=== PATIENT | female | born 1990 | race Caucasian/White ===

== ENCOUNTER 2024-01-06 17:49 | Emergency (ER) | payer BC, SELFPAY ==
[2024-01-06] VITALS (7 sets, daily range): BP systolic 84–119; BP diastolic 52–81
--- NOTE | 2024-01-06 18:54 | ED.GENMED ---
History of Present Illness
General
Chief Complaint: Chest Pain
Source: patient
Exam Limitations: none
Time Seen by Provider: 01/06/24 18:34
Nursing documentation reviewed up to this point in time: agreed with
Travel History
Have you had any contact with someone who has COVID-19?: No
Do you have any symptoms of coronavirus? Fever > 100 degrees, chills, cough, shortness of breath, sore throat, loss of taste or smell, muscle aches, or headache?: No
History of Present Illness
History of Present Illness:
33-year-old female presents emergency room complaining of chest pain on and off began 2 weeks ago in the middle of the night. Feels like a pressure and burning at times. She has taken famotidine, which does not seem to help. The pain does
alleviate on its own.
Past History
Past History
ED Past Medical History: None
ED Past Surgical History: Tonsilectomy
Social History
Tobacco: Non-smoker
Personal:
Review of Systems
Review of Systems
Allergies reviewed?: Yes
All Other Systems: Not applicable
Constitutional: Reports no symptoms
EENT: Reports no symptoms
Respiratory: Reports no symptoms
Cardiac: Reports chest pain
ABD/GI: Reports no symptoms
: Reports no symptoms
Musculoskeletal: Reports no symptoms
Skin: Reports no symptoms
Neurological: Reports no symptoms
Endocrine: Reports no symptoms
Hematologic/Lymphatic: Reports no symptoms
Psychiatric: Reports no symptoms
Phy Exam
Physical Exam
Physical Exam:
Physical Exam
General: no apparent distress, not acutely ill
Neck: supple. no meningeal signs. normal posterior pharynx
Heart: s1/s2 regular rate and rhythm, no murmur. equal radial
pulses.
HEENT: Pupils equal round reactive to light, EOMI
Lungs: no acute respiratory distress. clear bilaterally, chest wall tender to palpation reproducing pain
Abdomen: normal bowel sounds. not tender. no CVAT
Neuro: alert and oriented. no focal neurological deficits cranial nerves II through XII intact
Skin: no rash
Psychiatric: well kept. interactive and cooperative
Extremities: no edema. no calf tenderness. negative homans. good distal pulses
Scores
Heart Score for Chest Pain Patients
STEMI patient?: Not applicable
Course
Orders/Labs/Results
Orders:
Orders
01/06/24 17:55
Electrocardiogram (*1) Urgent
Reason for Study: Chest Pain
EKG- Treatment ONCE
01/06/24 18:51
IV Insert/Care/Rem.- Treatment PRN
Ketorolac [Toradol] 15 mg IM NOW STA
01/06/24 18:52
CR Chest - 2 Views Urgent
Comment:
Reason For Exam: midsternal chest pain, 2 weeks
01/06/24 18:54
Test Result ONCE
01/06/24 19:06
Complete Blood Count/With Diff Urgent
Comprehensive Metabolic Panel Urgent
HCG, Serum Qualitative Screen Urgent
Troponin I Urgent
01/06/24 19:10
Ketorolac [Toradol] 15 mg IV NOW STA
01/06/24 19:19
D-Dimer Urgent
Abnormal Lab Results
01/06/24
19:06
MCH 31.6 H pg
(27.0-31.0)
MPV 11.6 H fL
(7.4-10.4)
Glucose 142 H mg/dl
(70-99)
01/06/24 19:06
01/06/24 19:06
Vital Signs
Initial and Last Documented VS:
Initial Vital Signs
Temp Pulse Resp BP Pulse Ox
98.5 F 78 20 119/73 97
01/06/24 17:51 01/06/24 17:51 01/06/24 17:51 01/06/24 17:51 01/06/24 17:51
Last Documented Vital Signs
Temp Pulse Resp BP Pulse Ox
98.5 F 70 15 84/52 100
01/06/24 17:51 01/06/24 19:15 01/06/24 19:15 01/06/24 19:15 01/06/24 19:15
MDM/Problems Addressed
Differential Diagnosis Includes:
PE, chest wall pain
MDM/Problems Addressed:
33 yo female with chest wall pain. Do not suspect acs, pe or pneumothorax. Vasovagal episode while in ED. No signs of dysrhythmia, but had mild bradycardia. Stable for d/c.
*Radiology
Radiology exam reviewed: radiology read reviewed (cxr nad)
*Pulse Oximetry
Patient hypoxic: no
*EKG
Interpreted by ED Provider?: Yes
EKG Intrepretation Date: 01/06/24
EKG Intrepretation Time: 17:58
Interpretation: normal
Comparison EKG: no changes
Heart Rate: 78
Rate: normal
Rhythm: sinus
[place]: normal axis
Interval: normal interval
QRS Pattern: normal QRS
Ischemia: no ischemia
*Brass Polisher Interpretation
Rate: normal
Interpretation: normal
Heart Rate: 70
Rhythm: sinus
*Critical Care Note
Total Time (30-74mins, 75-104mins- exclusive of procedures): Not Applicable
Patient Management
Social determinants of health affecting care: Living situation
Escalation/DeEscalation of care consider admission/obs:
admit not indicated
ED Attending Note
-
Portions of this chart may have been created with voice recognition software.� Occasional wrong word or��sound alike� substitutions may have occurred due to the inherent limitations of voice recognition software.
Discharge Plan
Departure
Patient Disposition: Home (Routine Discharge)
Date of Disposition: 01/06/24
Time of Disposition: 20:09
Patient with high blood pressure during this ER visit?: No
Condition: Good
Discharge Problem:
Chest pain, non-cardiac
Instructions: Chest Pain That Is Not Caused by the Heart (DC), Costochondritis (DC)
Prescriptions:
No Action
vit-iron fum-folic ac 1 EACH tablet
1 ea PO DAILY
ibuprofen 600 MG tablet
600 mg PO Q4HPRN PRN (Reason: moderate pain/cramps) 0RF
Referrals:
Paige Diego PA-C [Family Provider] -
Activity Restrictions/Additional Instructions:
Follow up with primary care. Return for any concerns.
Interventions
Interventions:
*Risk Screen - Suicide Last Done: 01/06/24 17:51
*General Assessment Last Done: 01/06/24 17:51
*Neglect/Abuse Screening Last Done: 01/06/24 17:51
ED- Fall Risk Assessment Last Done: 01/06/24 18:33
ED- Cardiac Assessment Last Done: 01/06/24 18:33
Discharge Date and Time
Print Language: FAROESE
[2024-01-06] MEDS: TORADOL 15 MG IV (19:11)
[2024-01-06 19:14] LABS: % Basophils 0.8 % (0-2); % Eosinophils 3.7 % (0-6); % Immature Granulocytes 0.1 % (0-0.5); % Lymphocytes 29.1 % (20.5-51.1); % Monocytes 7.6 % (1.7-9.3); % Neutrophils 58.7 % (42.2-75.2); Absolute Basophils 0.1 10^3/uL (0-0.2); Absolute Eosinophils 0.3 10^3/uL (0-0.7); Absolute Lymphocytes 2.1 10^3/uL (1.2-3.4); Absolute Monocytes 0.6 10^3/uL (0.1-0.6); Absolute Neutrophils 4.2 10^3/uL (1.4-6.5); Hematocrit 38.4 % (37.0-47.0); Hemoglobin 13.4 g/dL (12.0-16.0); Mean Corp Hgb Conc. 34.9 g/dL (33.0-37.0); Mean Corpuscular Hgb 31.6 pg (27.0-31.0); Mean Corpuscular Volume 90.6 fL (81.0-99.0); Mean Platelet Volume 11.6 fL (7.4-10.4); Nucleated Red Blood Cells % 0 %; Platelet Count 232 10^3/uL (130-400); Red Blood Cell Count 4.24 10^6/uL (4.20-5.40); Red Cell Dist. Width 12.2 % (11.5-14.5); White Blood Cell Count 7.2 10^3/uL (4.8-10.8)
[2024-01-06 19:29] LABS: HCG, Serum Qualitative Screen Negative
[2024-01-06 19:32] LABS: ALT (SGPT) 16 U/L (0-35); AST (SGOT) 21 U/L (14-36); Albumin 3.9 g/dl (3.5-5.0); Alkaline Phosphatase 67 U/L (38-126); Blood Urea Nitrogen 13 mg/dl (7-17); Calcium 9.4 mg/dl (8.4-10.2); Carbon Dioxide 27 mmol/L (22-30); Chloride 103 mmol/L (98-107); Glucose 142 mg/dl (70-99); Potassium 3.7 mmol/L (3.5-5.1); Sodium 136 mmol/L (135-145); Total Bilirubin 0.8 mg/dl (0.2-1.3); Total Protein 6.4 g/dl (6.3-8.2); eGFR > 60.00
[2024-01-06 19:37] LABS: D-Dimer 0.37 ug/mlFEU (0.00-0.50)
[2024-01-06 19:37] LABS: Troponin I < 0.012 ng/ml
== END 2024-01-06 20:25 | disposition home or self-care (01) ==
LOC: EMR 17:49
PROVIDERS: EMERGENCY PHYSICIAN Emergency Medicine; FAMILY PHYSICIAN Physician Assistant
DX: R07.89 Other chest pain (principal)
CPT/HCPCS: 99283; 96374; 71046; 80053; 84484; 84703; 85025; 85379; 93005

== ENCOUNTER 2025-01-31 18:08 | Emergency (ER) | payer BC, SELFPAY ==
[2025-01-31 18:11] VITALS: BP 124/87
[2025-01-31 18:31] LABS: % Eosinophils 3.7 % (0-6); % Immature Granulocytes 0.1 % (0-0.5); % Lymphocytes 33.7 % (20.5-51.1); % Neutrophils 53.5 % (42.2-75.2); Absolute Basophils 0.1 10^3/uL (0-0.2); Absolute Eosinophils 0.3 10^3/uL (0-0.7); Absolute Lymphocytes 2.4 10^3/uL (1.2-3.4); Absolute Monocytes 0.6 10^3/uL (0.1-0.6); Absolute Neutrophils 3.8 10^3/uL (1.4-6.5); Hematocrit 38.8 % (37.0-47.0); Hemoglobin 13.4 g/dL (12.0-16.0); Mean Corp Hgb Conc. 34.5 g/dL (33.0-37.0); Mean Corpuscular Hgb 32.4 pg (27.0-31.0); Mean Corpuscular Volume 93.7 fL (81.0-99.0); Nucleated Red Blood Cells % 0 %; Platelet Count 245 10^3/uL (130-400); Red Blood Cell Count 4.14 10^6/uL (4.20-5.40); Red Cell Dist. Width 12.5 % (11.5-14.5)
[2025-01-31 18:46] LABS: ALT (SGPT) 26 U/L (0-35); AST (SGOT) 32 U/L (14-36); Albumin 4.5 g/dl (3.5-5.0); Alkaline Phosphatase 73 U/L (38-126); Blood Urea Nitrogen 13 mg/dl (7-17); Calcium 9.8 mg/dl (8.4-10.2); Carbon Dioxide 26 mmol/L (22-30); Chloride 107 mmol/L (98-107); Glucose 90 mg/dl (70-99); Potassium 4.7 mmol/L (3.5-5.1); Sodium 138 mmol/L (135-145); Total Protein 7.2 g/dl (6.3-8.2); eGFR > 60.00
--- NOTE | 2025-01-31 22:25 | ED.GENMED ---
History of Present Illness
General
Chief Complaint: DVT/Possible Blood Clot
Source: patient
Exam Limitations: none
Time Seen by Provider: 01/31/25 22:09
History of Present Illness
History of Present Illness:
34-year-old otherwise healthy female presents complaining of onset of swelling and discomfort to the left posterior calf after leaving work today. She works at a desk. No recent travel or surgery. No chest pain or shortness of breath. No known
injury. No other complaints at this time
Past History
Past History
ED Past Medical History: None
ED Past Surgical History: Tonsilectomy
Social History
Tobacco: Non-smoker
Personal:
Phy Exam
Physical Exam
Physical Exam:
General: Well-appearing female no acute respiratory distress musculoskeletal exam: Left calf slightly tender posteriorly no visible swelling or enlargement compared to the contralateral side.
Popliteal space is nontender good range of motion left knee and ankle. There is a 2+ DP pulse left foot
Course
Orders/Labs/Results
Orders:
Orders
01/31/25 18:10
US Periph Venous LOWER Ext LT Urgent
Comment:
Reason For Exam: left calf pain and swelling
01/31/25 18:16
CMP [Comprehensive Metabolic Panel] Urgent
Complete Blood Count/With Diff Urgent
Abnormal Lab Results
01/31/25
18:16
RBC 4.14 L 10^6/uL
(4.20-5.40)
MCH 32.4 H pg
(27.0-31.0)
MPV 11.0 H fL
(7.4-10.4)
01/31/25 18:16
01/31/25 18:16
Vital Signs
Initial and Last Documented VS:
Initial Vital Signs
Temp Pulse Resp BP Pulse Ox
98.6 F 74 16 124/87 98
01/31/25 18:11 01/31/25 18:11 01/31/25 18:11 01/31/25 18:11 01/31/25 18:11
Last Documented Vital Signs
Temp Pulse Resp BP Pulse Ox
98.6 F 74 16 124/87 98
01/31/25 18:11 01/31/25 18:11 01/31/25 18:11 01/31/25 18:11 01/31/25 18:11
MDM/Problems Addressed
Differential Diagnosis Includes:
Left calf pain and swelling. Consider DVT versus calf strain
Ultrasound left leg negative for DVT. Suspect underlying calf strain recommend elevation and Motrin. Stable for discharge
*Critical Care Note
Total Time (30-74mins, 75-104mins- exclusive of procedures): Not Applicable
ED Attending Note
-
Portions of this chart may have been created with voice recognition software.� Occasional wrong word or��sound alike� substitutions may have occurred due to the inherent limitations of voice recognition software.
Discharge Plan
Departure
Patient Disposition: Home (Routine Discharge)
Date of Disposition: 01/31/25
Time of Disposition: 22:27
Patient with high blood pressure during this ER visit?: No
Discharge Problem:
Calf pain
Prescriptions:
No Action
vit-iron fum-folic ac 1 EACH tablet
1 ea PO DAILY
ibuprofen 600 MG tablet
600 mg PO Q4HPRN PRN (Reason: moderate pain/cramps) 0RF
Referrals:
Rakel Bhatia DO [Family Provider, Family Practice]
Activity Restrictions/Additional Instructions:
Elevate for swelling. Use ibuprofen for pain. Return if worse otherwise follow-up your doctor
Interventions
Interventions:
*Risk Screen - Suicide Last Done: 01/31/25 18:11
*General Assessment Last Done: 01/31/25 18:11
*Neglect/Abuse Screening Last Done: 01/31/25 18:11
*ED- Fall Risk Assessment Last Done: 01/31/25 18:11
*ED COVID-19 Vaccine History Last Done: 01/31/25 18:11
Discharge Date and Time
Print Language: ECUADORE[place]
== END 2025-01-31 22:44 | disposition home or self-care (01) ==
LOC: EMR 18:08
PROVIDERS: Emergency Medicine; EMERGENCY PHYSICIAN Emergency Medicine; FAMILY PHYSICIAN Family Medicine
DX: M79.662 Pain in left lower leg (principal)
CPT/HCPCS: 99284; 80053; 85025; 93971